=== PATIENT | male | born 1960 | race Caucasian/White ===

== ENCOUNTER → 2018-01-02 | Outpatient (CLI) | payer BC | END | disposition home or self-care (01) | LOC: ECHO 10:13 | DX: I35.0 Nonrheumatic aortic (valve) stenosis (principal); I07.1 Rheumatic tricuspid insufficiency | CPT/HCPCS: 93306 ==

== ENCOUNTER 2021-05-31 19:15 | Inpatient (IN) | payer BC ==
[~2021-05-31] VITALS: Ht 185.4 cm; Wt 127.0 kg
[2021-05-31 19:20] VITALS: BP 140/78
[2021-05-31] MEDS ORDERED: LEVO200T5 PO (19:50)
[2021-05-31] MEDS ORDERED: METF10007 PO (19:50)
[2021-05-31] MEDS ORDERED: SEMA14TA PO (19:50)
[2021-05-31] MEDS ORDERED: PIOG30TA62 PO (19:50)
[2021-05-31] MEDS ORDERED: LORazepam 0.5 MG TABLET PO PRN (21:00)
[2021-05-31] MEDS ORDERED: ONDANSETRON PF 4 MG/2 ML VIAL. IVP PRN (21:00)
[2021-05-31] MEDS ORDERED: ACETAMINOPHEN 325 MG TABLET. PO PRN (21:00)
[2021-05-31] MEDS ORDERED: DEXTROSE 50% 25 GM / 50ML DISP.SYRIN. IV PRN (21:00)
[2021-05-31] MEDS ORDERED: SENNOSIDES 8.6 MG TABLET PO PRN (21:00)
[2021-05-31] MEDS ORDERED: PROCHLORPERAZINE 10 MG/2 ML VIAL. IV PRN (21:00)
[2021-05-31] MEDS ORDERED: DOCUSATE SODIUM 100 MG CAPSULE. PO PRN (21:00)
[2021-05-31] MEDS ORDERED: ZOLPIDEM 5 MG TABLET. PO PRN (21:00)
[2021-05-31] MEDS: HEPARIN for SUB-Q USE 5,000 UNIT/ML VIAL. SQ SCH (21:18)
[2021-05-31] MEDS: ASCORBIC ACID 1,000 MG TABLET PO SCH (21:18)
[2021-05-31] MEDS: BENZONATATE 100 MG CAPSULE. PO SCH (21:19)
[2021-05-31 23:44] VITALS: BP 151/78
[2021-06-01] MEDS: guaiFENesin/CODEINE 100mg/10mg 5 ML LIQUID PO PRN (01:38)
[2021-06-01 02:30] LABS: ALBUMIN 2.6 g/dL (3.4-5.0); ALBUMIN/GLOBULIN RATIO 0.5 (1.0-1.7); C-REACTIVE PROTEIN 112.5 mg/L (0-3.3); CALCIUM 8.1 mg/dL (8.5-10.1); CREATININE 0.7 mg/dL (0.7-1.3); GFR 115.4; POTASSIUM 4.3 mmol/L (3.5-5.1); TOTAL BILIRUBIN 0.6 mg/dL (0.2-1.0); TOTAL PROTEIN 7.4 g/dL (6.4-8.2)
[2021-06-01 02:59] LABS: BASO % 0 % (0-3); EOS % 0 % (0-3); HEMATOCRIT 42.4 % (39.0-53.0); HEMOGLOBIN 14.5 g/dL (13.0-17.5); LYMPH # 0.7 x10^3/uL (1.0-4.8); LYMPH % 11 % (24-48); MEAN CORPUSCULAR HEMOGLOBIN 29 pg (25-35); MEAN CORPUSCULAR HGB CONC 34 g/dL (31-37); MEAN CORPUSCULAR VOLUME 84 fL (79-100); MONO # 0.5 x10^3/uL (0.0-1.1); MONO % 8 % (0-9); NEUT # 5.1 x10^3/uL (1.8-7.7); NEUT % 81 % (31-73); PLATELET COUNT 242 x10^3/uL (140-400); RED BLOOD COUNT 5.03 x10^6/uL (4.30-5.70); RED CELL DISTRIBUTION WIDTH 14.3 % (11.5-14.5); WHITE BLOOD COUNT 6.3 x10^3/uL (4.0-11.0)
[2021-06-01 03:12] LABS: MAGNESIUM 2.3 mg/dL (1.8-2.4)
[2021-06-01 03:18] VITALS: BP 140/78
[2021-06-01] MEDS ORDERED: REMDESIVIR LOAD in IV NORMAL SALINE 250ML TV IV ONE (05:00)
[2021-06-01] MEDS: ASCORBIC ACID 1,000 MG TABLET PO SCH ×3 (08:49→20:43)
[2021-06-01] MEDS: ZINC SULFATE 220 MG CAPSULE. PO SCH (08:49)
[2021-06-01] MEDS: BENZONATATE 100 MG CAPSULE. PO SCH ×3 (08:49→20:43)
[2021-06-01] MEDS: DEXAMETHASONE SOD PHOS 4 MG/ML VIAL IVP SCH (08:50)
[2021-06-01] MEDS: THIAMINE 100 MG TABLET. PO SCH (08:50)
[2021-06-01] MEDS: HEPARIN for SUB-Q USE 5,000 UNIT/ML VIAL. SQ SCH ×2 (08:51→20:44)
[2021-06-01] MEDS: INSULIN LISPRO 300 UNITS/3 ML VIAL. SQ SCH ×3 (08:52→16:22)
[2021-06-01] MEDS ORDERED: DEXTROSE 50% 25 GM / 50ML DISP.SYRIN. IV PRN (09:30)
--- NOTE | 2021-06-01 10:45 | NUR ---
SW following. Discussed with RN, pt from home with family, 9L, ada diet. COVID-19 positive. Pt started on Remdesivir early this morning. RN advised no SW needs at this time. SW will continue to follow.
--- NOTE | 2021-06-01 10:50 | PDOC1 ---
History and Physical Date of Service: DOS: DATE: 06/01/21 TIME: 10:44 Chief Complaint: Problems: (1) COVID (2) PNA (pneumonia) Chief Complain: Shortness of breath History of Present Illness: HPI: Patient is a 60-year-old white male presented to [facility] yesterday due to concern for Covid pneumonia. Patient reports he started developing symptoms about 10 days ago. He had been in close exposure to his njelnckd-qt-ylg who was found to be Covid positive today as recently. He went got tested at that time was found to be positive. Initially just quarantine at home and provided supportive care himself. Actually to outside emergency room 5 days ago because his shortness of breath was persisting and he was discharged that day with azithromycin. He finished these antibiotics on May 30. Patient reported that yesterday he continued feeling very weak and short of b reath checked his pulse ox and it was in the 70s prompting him to present for evaluation outside hospital. Imaging performed there showed opacities consistent with COVID-19 infection. He was then recommended for transfer here for further treatment. I evaluated the patient this morning he was resting in bed on 10 L nasal cannula. Reported his shortness of breath was improving but notably present still. Reported his oxygen decreases when he sleeps. Does not wear CPAP or BiPAP at home. Started on remdesivir and dexamethasone overnight. Just completed antibiotic course will hold off for now. Pulmonary consult Past Medical/Surgical History: PMH/PSH: Noninsulin-dependent type 2 diabetes Allergies: Allergies: Coded Allergies: Penicillins (Verified Allergy, Intermediate, 05/31/21) Family History: Family History: Diabetes Social History: Social History: Denies alcohol tobacco drug use Current Medications: Current Medications Current Medications Sennosides (Senna) 17.2 mg PRN BID PRN PO CONSTIPATION; Start 05/31/21 at 21:00 Docusate Sodium (Colace) 100 mg PRN DAILY PRN PO HARD STOOLS; Start 05/31/21 at 21:00 Ondansetron HCl (Zofran) 4 mg PRN Q6HRS PRN IVP NAUSEA/VOMITING; Start 05/31/21 at 21:00 Insulin Human Lispro (HumaLOG) 0-9 UNITS TIDWMEALS SQ Last administered on 06/01/21at 08:52; Start 06/01/21 at 08:00 Dextrose (Dextrose 50%-Water Syringe) 12.5 gm PRN Q15MIN PRN IV SEE COMMENTS; Start 05/31/21 at 21:00; Stop 06/01/21 at 09:42; Status DC Acetaminophen (Tylenol) 650 mg PRN Q4HRS PRN PO TEMP OVER 100.4F OR MILD PAIN; Start 05/31/21 at 21:00 Lorazepam (Ativan) 0.5 mg PRN Q6HRS PRN PO ANXIETY / AGITATION; Start 05/31/21 at 21:00 Lorazepam (Ativan Inj) 0.25 mg PRN Q4HRS PRN IV ANXIETY / AGITATION; Start 05/31/21 at 21:00 Heparin Sodium (Porcine) (Heparin Sodium) 5,000 unit Q12HR SQ Last administered on 06/01/21at 08:51; Start 05/31/21 at 21:00 Prochlorperazine Edisylate (Compazine) 10 mg PRN Q6HRS PRN IV NAUSEA/VOMITING; Start 05/31/21 at 21:00 Zolpidem Tartrate (Ambien) 2.5 mg PRN QHS PRN PO INSOMNIA; Start 05/31/21 at 21:00 Ascorbic Acid (Vitamin C) 3,000 mg TID PO Last administered on 06/01/21at 08:49; Start 05/31/21 at 21:00 Dexamethasone Sodium Phosphate (Decadron) 6 mg DAILY IVP Last administered on 06/01/21at 08:50; Start 06/01/21 at 09:00; Stop 06/11/21 at 08:59 Thiamine Mononitrate (Vitamin B-1) 300 mg DAILY PO Last administered on 06/01/21at 08:50; Start 06/01/21 at 09:00 Zinc Sulfate (Orazinc) 220 mg DAILY PO Last administered on 06/01/21at 08:49; Start 06/01/21 at 09:00 Benzonatate (Tessalon Perle) 100 mg [id number] PO Last administered on 06/01/21at 08:49; Start 05/31/21 at 22:00 Guaifenesin/ Codeine Phosphate (Robitussin Ac) 5 ml PRN Q6HRS PRN PO COUGH Last administered on 06/01/21at 01:38; Start 06/01/21 at 01:00 Remdesivir 200 mg/ Sodium Chloride 210 ml @ 210 mls/hr 1X ONCE IV Last administered on 06/01/21at 04:35; Start 06/01/21 at 05:00; Stop 06/01/21 at 05:59; Status DC Remdesivir 100 mg/ Sodium Chloride 230 ml @ 460 mls/hr Q24H IV ; Start 06/02/21 at 09:00; Stop 06/05/21 at 09:29 Levothyroxine Sodium (Synthroid) 200 mcg DAILY06 PO ; Start 06/02/21 at 06:00 Insulin Glargine (Lantus Syringe) 10 unit QHS SQ ; Start 06/01/21 at 21:00 Insulin Human Lispro (HumaLOG) 0-7 UNITS TIDWMEALS SQ ; Start 06/01/21 at 12:00 Dextrose (Dextrose 50%-Water Syringe) 12.5 gm PRN Q15MIN PRN IV SEE COMMENTS; Start 06/01/21 at 09:30 Active Scripts Active Reported Metformin Hcl 1,000 Mg Tablet 1,000 Mg PO BIDWMEALS Rybelsus (Semaglutide) 14 Mg Tablet 14 Mg PO DAILY Pioglitazone Hcl 30 Mg Tablet 30 Mg PO DAILY Levothyroxine Sodium 200 Mcg Tablet 200 Mcg PO DAILY ROS: Review of Systems Review of System Unless noted in HPI 14 point review systems is negative Physical Exam: Vital Signs: Vital Signs Date Time Temp Pulse Resp B/P (MAP) Pulse Ox O2 Delivery O2 Flow Rate FiO2 06/01/21 08:00 Nasal Cannula 9.0 06/01/21 06:21 91 06/01/21 03:18 98.7 84 25 140/78 (98) 98.7 Physcial Exam: GEN: No apparent distress. Alert and oriented HEENT: Normal cephalic, atraumatic, external auditory canals are patent EYES: Extraocular muscles are intact, pupil are equally round and reactive to light and accommodation MUSCULOSKELETAL: Well developed , well nourished, good range of motion ENDOCRINE: No thyromegaly was palpated LYMPHATICS: No cervical chain or axillary nodes were noted HEMATOPOIETIC: No bruising NECK: Supple, no JVD, no thyromegaly was noted LUNGS: Crackles in lower lung hopkins. HEART: RRR, S!, S2 present. Peripheral pulses intact, no obvious murmurs noted ABDOMEN: Soft, nontender. Positive bowel sounds, no organomegaly, normal bowel sounds EXTREMITIES: Without clubbing, cyanosis, or edema. Pedal pulses intact. NEUROLOGIC: Normal speech and tone. A&O x 3, moves all extremities, no obvious focal deficits PSYCHIATRIC: Normal affect, normal mood. Stable SKIN: No ulcerations or rashes, good skin turgor, no jaundice VASCULAR: Good capillary refill, neurovascular bundle appears to be intact Labs: Labs: Laboratory Tests Test 06/01/21 02:00 06/01/21 07:37 White Blood Count 6.3 x10^3/uL (4.0-11.0) Red Blood Count 5.03 x10^6/uL (4.30-5.70) Hemoglobin 14.5 g/dL (13.0-17.5) Hematocrit 42.4 % (39.0-53.0) Mean Corpuscular Volume 84 fL (79-100) Mean Corpuscular Hemoglobin 29 pg (25-35) Mean Corpuscular Hemoglobin Concent 34 g/dL (31-37) Red Cell Distribution Width 14.3 % (11.5-14.5) Platelet Count 242 x10^3/uL (140-400) Neutrophils (%) (Auto) 81 % (31-73) Lymphocytes (%) (Auto) 11 % (24-48) Monocytes (%) (Auto) 8 % (0-9) Eosinophils (%) (Auto) 0 % (0-3) Basophils (%) (Auto) 0 % (0-3) Neutrophils # (Auto) 5.1 x10^3/uL (1.8-7.7) Lymphocytes # (Auto) 0.7 x10^3/uL (1.0-4.8) Monocytes # (Auto) 0.5 x10^3/uL (0.0-1.1) Eosinophils # (Auto) 0.0 x10^3/uL (0.0-0.7) Basophils # (Auto) 0.0 x10^3/uL (0.0-0.2) D-Dimer (Daniela) 0.65 ug/mlFEU (0.00-0.50) Sodium Level 131 mmol/L (136-145) Potassium Level 4.3 mmol/L (3.5-5.1) Chloride Level 96 mmol/L (98-107) Carbon Dioxide Level 24 mmol/L (21-32) Anion Gap 11 (6-14) Blood Urea Nitrogen 12 mg/dL (8-26) Creatinine 0.7 mg/dL (0.7-1.3) Estimated GFR (Cockcroft-Gault) 115.4 BUN/Creatinine Ratio 17 (6-20) Glucose Level 286 mg/dL (70-99) Calcium Level 8.1 mg/dL (8.5-10.1) Phosphorus Level 3.0 mg/dL (2.6-4.7) Magnesium Level 2.3 mg/dL (1.8-2.4) Total Bilirubin 0.6 mg/dL (0.2-1.0) Aspartate Amino Transf (AST/SGOT) 47 U/L (15-37) Alanine Aminotransferase (ALT/SGPT) 33 U/L (16-63) Alkaline Phosphatase 41 U/L (46-116) C-Reactive Protein, Quantitative 112.5 mg/L (0-3.3) Total Protein 7.4 g/dL (6.4-8.2) Albumin 2.6 g/dL (3.4-5.0) Albumin/Globulin Ratio 0.5 (1.0-1.7) Glucose (Fingerstick) 256 mg/dL (70-99) Laboratory Tests Test 06/01/21 02:00 06/01/21 07:37 White Blood Count 6.3 x10^3/uL (4.0-11.0) Red Blood Count 5.03 x10^6/uL (4.30-5.70) Hemoglobin 14.5 g/dL (13.0-17.5) Hematocrit 42.4 % (39.0-53.0) Mean Corpuscular Volume 84 fL (79-100) Mean Corpuscular Hemoglobin 29 pg (25-35) Mean Corpuscular Hemoglobin Concent 34 g/dL (31-37) Red Cell Distribution Width 14.3 % (11.5-14.5) Platelet Count 242 x10^3/uL (140-400) Neutrophils (%) (Auto) 81 % (31-73) Lymphocytes (%) (Auto) 11 % (24-48) Monocytes (%) (Auto) 8 % (0-9) Eosinophils (%) (Auto) 0 % (0-3) Basophils (%) (Auto) 0 % (0-3) Neutrophils # (Auto) 5.1 x10^3/uL (1.8-7.7) Lymphocytes # (Auto) 0.7 x10^3/uL (1.0-4.8) Monocytes # (Auto) 0.5 x10^3/uL (0.0-1.1) Eosinophils # (Auto) 0.0 x10^3/uL (0.0-0.7) Basophils # (Auto) 0.0 x10^3/uL (0.0-0.2) D-Dimer (Daniela) 0.65 ug/mlFEU (0.00-0.50) Sodium Level 131 mmol/L (136-145) Potassium Level 4.3 mmol/L (3.5-5.1) Chloride Level 96 mmol/L (98-107) Carbon Dioxide Level 24 mmol/L (21-32) Anion Gap 11 (6-14) Blood Urea Nitrogen 12 mg/dL (8-26) Creatinine 0.7 mg/dL (0.7-1.3) Estimated GFR (Cockcroft-Gault) 115.4 BUN/Creatinine Ratio 17 (6-20) Glucose Level 286 mg/dL (70-99) Calcium Level 8.1 mg/dL (8.5-10.1) Phosphorus Level 3.0 mg/dL (2.6-4.7) Magnesium Level 2.3 mg/dL (1.8-2.4) Total Bilirubin 0.6 mg/dL (0.2-1.0) Aspartate Amino Transf (AST/SGOT) 47 U/L (15-37) Alanine Aminotransferase (ALT/SGPT) 33 U/L (16-63) Alkaline Phosphatase 41 U/L (46-116) C-Reactive Protein, Quantitative 112.5 mg/L (0-3.3) Total Protein 7.4 g/dL (6.4-8.2) Albumin 2.6 g/dL (3.4-5.0) Albumin/Globulin Ratio 0.5 (1.0-1.7) Glucose (Fingerstick) 256 mg/dL (70-99) Assessment/Plan Assessment/Plan COVID-19 pneumonia, noninsulin-dependent type 2 diabetes -Present outside hospital with 9-day history of URI symptoms, close contact with Covid positive people -Initially treated outpatient with azithromycin but returned emergency room yesterday due to failed treatment -Noted for positive COVID-19 sent here. -Started remdesivir and dexamethasone overnight. We will hold off on antibiotics given he just completed a recent course. -Consult to pulmonary team -We will provide sliding scale and long-acting for patient's diabetes while inpatient. If He is insistent on his oral meds he can continue them and stop insulin while admitted if he desires. -DVT prophylaxis -Diet as tolerated -Plan of care discussed with bedside RN. Justifications for Admission Other Justification COVID-19 positive test (U07.1, COVID-19) with Acute Pneumonia (J12.89, Other viral pneumonia) (If respiratory failure or sepsis present, add as separate assessment) ANDRZEJ SALAMANCA MD Jun 01, 2021 10:50
[2021-06-01 11:00] VITALS: BP 143/75
--- NOTE | 2021-06-01 11:50 | PDOC ---
PULMONARY PROGRESS NOTES DATE: 06/01/21 TIME: 11:48 Vitals Vital Signs Date Time Temp Pulse Resp B/P (MAP) Pulse Ox O2 Delivery O2 Flow Rate FiO2 06/01/21 11:00 98.4 53 23 143/75 (97) 97 98.4 06/01/21 08:00 Nasal Cannula 9.0 Labs Laboratory Tests Test 06/01/21 02:00 06/01/21 07:37 06/01/21 11:39 White Blood Count 6.3 x10^3/uL (4.0-11.0) Red Blood Count 5.03 x10^6/uL (4.30-5.70) Hemoglobin 14.5 g/dL (13.0-17.5) Hematocrit 42.4 % (39.0-53.0) Mean Corpuscular Volume 84 fL (79-100) Mean Corpuscular Hemoglobin 29 pg (25-35) Mean Corpuscular Hemoglobin Concent 34 g/dL (31-37) Red Cell Distribution Width 14.3 % (11.5-14.5) Platelet Count 242 x10^3/uL (140-400) Neutrophils (%) (Auto) 81 % (31-73) Lymphocytes (%) (Auto) 11 % (24-48) Monocytes (%) (Auto) 8 % (0-9) Eosinophils (%) (Auto) 0 % (0-3) Basophils (%) (Auto) 0 % (0-3) Neutrophils # (Auto) 5.1 x10^3/uL (1.8-7.7) Lymphocytes # (Auto) 0.7 x10^3/uL (1.0-4.8) Monocytes # (Auto) 0.5 x10^3/uL (0.0-1.1) Eosinophils # (Auto) 0.0 x10^3/uL (0.0-0.7) Basophils # (Auto) 0.0 x10^3/uL (0.0-0.2) D-Dimer (Daniela) 0.65 ug/mlFEU (0.00-0.50) Sodium Level 131 mmol/L (136-145) Potassium Level 4.3 mmol/L (3.5-5.1) Chloride Level 96 mmol/L (98-107) Carbon Dioxide Level 24 mmol/L (21-32) Anion Gap 11 (6-14) Blood Urea Nitrogen 12 mg/dL (8-26) Creatinine 0.7 mg/dL (0.7-1.3) Estimated GFR (Cockcroft-Gault) 115.4 BUN/Creatinine Ratio 17 (6-20) Glucose Level 286 mg/dL (70-99) Calcium Level 8.1 mg/dL (8.5-10.1) Phosphorus Level 3.0 mg/dL (2.6-4.7) Magnesium Level 2.3 mg/dL (1.8-2.4) Total Bilirubin 0.6 mg/dL (0.2-1.0) Aspartate Amino Transf (AST/SGOT) 47 U/L (15-37) Alanine Aminotransferase (ALT/SGPT) 33 U/L (16-63) Alkaline Phosphatase 41 U/L (46-116) C-Reactive Protein, Quantitative 112.5 mg/L (0-3.3) Total Protein 7.4 g/dL (6.4-8.2) Albumin 2.6 g/dL (3.4-5.0) Albumin/Globulin Ratio 0.5 (1.0-1.7) Glucose (Fingerstick) 256 mg/dL (70-99) 267 mg/dL (70-99) Laboratory Tests Test 06/01/21 02:00 06/01/21 07:37 06/01/21 11:39 White Blood Count 6.3 x10^3/uL (4.0-11.0) Red Blood Count 5.03 x10^6/uL (4.30-5.70) Hemoglobin 14.5 g/dL (13.0-17.5) Hematocrit 42.4 % (39.0-53.0) Mean Corpuscular Volume 84 fL (79-100) Mean Corpuscular Hemoglobin 29 pg (25-35) Mean Corpuscular Hemoglobin Concent 34 g/dL (31-37) Red Cell Distribution Width 14.3 % (11.5-14.5) Platelet Count 242 x10^3/uL (140-400) Neutrophils (%) (Auto) 81 % (31-73) Lymphocytes (%) (Auto) 11 % (24-48) Monocytes (%) (Auto) 8 % (0-9) Eosinophils (%) (Auto) 0 % (0-3) Basophils (%) (Auto) 0 % (0-3) Neutrophils # (Auto) 5.1 x10^3/uL (1.8-7.7) Lymphocytes # (Auto) 0.7 x10^3/uL (1.0-4.8) Monocytes # (Auto) 0.5 x10^3/uL (0.0-1.1) Eosinophils # (Auto) 0.0 x10^3/uL (0.0-0.7) Basophils # (Auto) 0.0 x10^3/uL (0.0-0.2) D-Dimer (Daniela) 0.65 ug/mlFEU (0.00-0.50) Sodium Level 131 mmol/L (136-145) Potassium Level 4.3 mmol/L (3.5-5.1) Chloride Level 96 mmol/L (98-107) Carbon Dioxide Level 24 mmol/L (21-32) Anion Gap 11 (6-14) Blood Urea Nitrogen 12 mg/dL (8-26) Creatinine 0.7 mg/dL (0.7-1.3) Estimated GFR (Cockcroft-Gault) 115.4 BUN/Creatinine Ratio 17 (6-20) Glucose Level 286 mg/dL (70-99) Calcium Level 8.1 mg/dL (8.5-10.1) Phosphorus Level 3.0 mg/dL (2.6-4.7) Magnesium Level 2.3 mg/dL (1.8-2.4) Total Bilirubin 0.6 mg/dL (0.2-1.0) Aspartate Amino Transf (AST/SGOT) 47 U/L (15-37) Alanine Aminotransferase (ALT/SGPT) 33 U/L (16-63) Alkaline Phosphatase 41 U/L (46-116) C-Reactive Protein, Quantitative 112.5 mg/L (0-3.3) Total Protein 7.4 g/dL (6.4-8.2) Albumin 2.6 g/dL (3.4-5.0) Albumin/Globulin Ratio 0.5 (1.0-1.7) Glucose (Fingerstick) 256 mg/dL (70-99) 267 mg/dL (70-99) Medications Active Scripts Medications Dose Route/Sig Max Daily Dose Days Date Category Metformin Hcl 1,000 Mg Tablet 1,000 Mg PO BIDWMEALS 05/31/21 Reported Rybelsus (Semaglutide) 14 Mg Tablet 14 Mg PO DAILY 05/31/21 Reported Pioglitazone Hcl 30 Mg Tablet 30 Mg PO DAILY 05/31/21 Reported Levothyroxine Sodium 200 Mcg Tablet 200 Mcg PO DAILY 05/31/21 Reported Impression . Full consult dictated Continue support with remdesivir and steroids, oxygen. Tocilizumab not available at this time KIP THOMPSON MD Jun 01, 2021 11:50
[2021-06-01] MEDS ORDERED: INSULIN LISPRO 300 UNITS/3 ML VIAL. SQ SCH (12:00)
--- NOTE | 2021-06-01 12:16 | CONS ---
DATE OF CONSULTATION: 06/01/2021 ATTENDING PHYSICIAN: Duane Subramanian MD DICTATING PHYSICIAN: Alfa Santos MD REASON FOR CONSULTATION: The patient is seen in pulmonary consultation at the request of Dr. Subramanian for respiratory failure, COVID-19 positivity. HISTORY OF PRESENT ILLNESS: The patient is a 60-year-old who tested positive approximately 11 days ago. Presented with increasing shortness of breath at [facility]. He was transferred for higher level of care to [facility]. The patient has had increasing shortness of breath over the last 2-3 days. He has some close exposures to qrhmvucd-td-yoz who was found to be positive also. He is currently on oxygen supplementation. He is requiring increased oxygen requirements as a consequence. I was asked to see him in consultation. The patient is currently on 9 liters of oxygen. He started off with 3. He is coughing, but producing no mucus. He did lose his taste. He had body aches. He had high fevers initially. He has been started on remdesivir and dexamethasone. PAST MEDICAL HISTORY: Type 2 diabetes, nonsmoker. ALLERGIES: PENICILLIN. FAMILY HISTORY: Diabetes. SOCIAL HISTORY: Denies any alcohol or tobacco. 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 REVIEW OF SYSTEMS: As indicated above, otherwise other systems were reviewed and negative. CURRENT MEDICATIONS: List was reviewed once again, he is receiving remdesivir, dexamethasone, oxygen supplementation, DVT prophylaxis. PHYSICAL EXAMINATION: VITAL SIGNS: Stable. T-max was 99.2. HEENT: Eyes, the sclerae were nonicteric. NECK: Jugular venous distention was not elevated. No lymphadenopathy. CHEST: Full expansion. CHEST: Adequate flow with no wheezes. CARDIOVASCULAR: Regular rate and rhythm with S1, S2, no S3. ABDOMEN: Soft. EXTREMITIES: No clubbing, cyanosis or edema. LABORATORY DATA: Reviewed. Electrolytes were noted. Sodium was low. C-reactive protein was 112. D-dimer was 0.65, nonspecific, more than likely related to COVID-19. Chest x-ray reviewed, compatible with bilateral opacities compatible with COVID-19. IMPRESSION: 1. Acute hypoxemic respiratory failure secondary to COVID-19 viral pneumonia. 2. COVID-19 viral pneumonia. 3. Hyponatremia. 4. Type 2 diabetes. PLAN: 1. Continue current support with oxygen supplementation. 2. Remdesivir. 3. DVT prophylaxis. 4. Dexamethasone. 5. Currently, the pharmacy is out of tocilizumab. We will continue with current support. JESSICA DR: Jamison TID: [id number]
[2021-06-01 15:00] VITALS: BP 143/70
[2021-06-01 19:00] VITALS: BP 119/69
[2021-06-01] MEDS: INSULIN GLARGINE SYRINGE. SQ SCH (20:44)
[2021-06-01 23:44] VITALS: BP 135/67
[2021-06-02 03:57] VITALS: BP 141/79
[2021-06-02 05:29] LABS: BASO % 0 % (0-3); EOS % 0 % (0-3); HEMOGLOBIN 13.7 g/dL (13.0-17.5); LYMPH # 1.4 x10^3/uL (1.0-4.8); LYMPH % 14 % (24-48); MEAN CORPUSCULAR HEMOGLOBIN 29 pg (25-35); MEAN CORPUSCULAR HGB CONC 34 g/dL (31-37); MEAN CORPUSCULAR VOLUME 85 fL (79-100); MONO # 1.1 x10^3/uL (0.0-1.1); MONO % 10 % (0-9); NEUT # 8.1 x10^3/uL (1.8-7.7); NEUT % 76 % (31-73); PLATELET COUNT 257 x10^3/uL (140-400); RED CELL DISTRIBUTION WIDTH 14.3 % (11.5-14.5); WHITE BLOOD COUNT 10.7 x10^3/uL (4.0-11.0)
[2021-06-02 05:31] LABS: CREATININE 0.8 mg/dL (0.7-1.3); GFR 98.9; MAGNESIUM 2.1 mg/dL (1.8-2.4); POTASSIUM 4.1 mmol/L (3.5-5.1)
[2021-06-02] MEDS: LEVOTHYROXINE 100 MCG TABLET PO SCH (06:05)
[2021-06-02 07:00] VITALS: BP 150/86
[2021-06-02] MEDS: ASCORBIC ACID 1,000 MG TABLET PO SCH ×3 (08:54→20:57)
[2021-06-02] MEDS: HEPARIN for SUB-Q USE 5,000 UNIT/ML VIAL. SQ SCH ×2 (08:54→20:56)
[2021-06-02] MEDS: THIAMINE 100 MG TABLET. PO SCH (08:54)
[2021-06-02] MEDS: INSULIN LISPRO 300 UNITS/3 ML VIAL. SQ SCH ×3 (08:54→17:54)
[2021-06-02] MEDS: BENZONATATE 100 MG CAPSULE. PO SCH ×3 (08:54→20:57)
[2021-06-02] MEDS: DEXAMETHASONE SOD PHOS 4 MG/ML VIAL IVP SCH (08:55)
[2021-06-02] MEDS: ZINC SULFATE 220 MG CAPSULE. PO SCH (08:55)
--- NOTE | 2021-06-02 09:51 | PDOC ---
[employer] PROGRESS NOTE Date of Service DOS: DATE: 06/02/21 TIME: 09:49 Chief Complaint Chief Complaint COVID-19 pneumonia, noninsulin-dependent type 2 diabetes -Present outside hospital with 9-day history of URI symptoms, close contact with Covid positive people -Initially treated outpatient with azithromycin but returned emergency room yesterday due to failed treatment -Noted for positive COVID-19 sent here. -Started remdesivir and dexamethasone overnight. We will hold off on antibiotics given he just completed a recent course. -Consult to pulmonary team -We will provide sliding scale and long-acting for patient's diabetes while inpatient. If He is insistent on his oral meds he can continue them and stop insulin while admitted if he desires. -DVT prophylaxis -Diet as tolerated -Plan of care discussed with bedside RN. History of Present Illness History of Present Illness Patient is a 60-year-old white male presented to [facility] [place] yesterday due to concern for Covid pneumonia. Patient reports he started developing symptoms about 10 days ago. He had been in close exposure to his flxdzkpi-nl-hnk who was found to be Covid positive today as recently. He went got tested at that time was found to be positive. Initially just quarantine at home and provided supportive care himself. Actually to outside emergency room 5 days ago because his shortness of breath was persisting and he was discharged that day with azithromycin. He finished these antibiotics on May 30. Patient reported that yesterday he continued feeling very weak and short of breath checked his pulse ox and it was in the 70s prompting him to present for evaluation outside hospital. Imaging performed there showed opacities consistent with COVID-19 infection. He was then recommended for transfer here for further treatment. I evaluated the patient this morning he was resting in bed on 10 L nasal cannula. Reported his shortness of breath was improving but notably present still. Reported his oxygen decreases when he sleeps. Does not wear CPAP or BiP AP at home. Started on remdesivir and dexamethasone overnight. Just completed antibiotic course will hold off for now. Pulmonary consult 06/02 Patient evaluated examined at bedside this morning. Breathing still about the same but able to wean to 9 L nasal cannula. Says he feels about the same overall. Continuing remdesivir dexamethasone. Pulmonary following. Vitals/I&O Vitals/I&O: Vital Signs Date Time Temp Pulse Resp B/P (MAP) Pulse Ox O2 Delivery O2 Flow Rate FiO2 06/02/21 07:00 97.8 74 16 150/86 (107) 96 97.8 06/01/21 20:00 Nasal Cannula 9.0 I & O 06/01/21 06/01/21 06/02/21 15:00 23:00 07:00 Output Total 550 ml 1 ml 1 ml Balance -550 ml -1 ml -1 ml Physical Exam General: Alert, Oriented X3, Cooperative Heart: Regular rate, Normal S1, Normal S2 Lungs: Other (Course) Abdomen: Normal bowel sounds, Soft, No tenderness Extremities: No edema, Normal pulses Skin: No significant lesion Labs Labs: Laboratory Tests Test 06/01/21 11:39 06/01/21 16:08 06/01/21 19:33 06/02/21 04:30 Glucose (Fingerstick) 267 mg/dL (70-99) 284 mg/dL (70-99) 251 mg/dL (70-99) Sodium Level 131 mmol/L (136-145) Potassium Level 4.1 mmol/L (3.5-5.1) Chloride Level 96 mmol/L (98-107) Carbon Dioxide Level 27 mmol/L (21-32) Anion Gap 8 (6-14) Blood Urea Nitrogen 13 mg/dL (8-26) Creatinine 0.8 mg/dL (0.7-1.3) Estimated GFR (Cockcroft-Gault) 98.9 Glucose Level 202 mg/dL (70-99) Calcium Level 8.0 mg/dL (8.5-10.1) Magnesium Level 2.1 mg/dL (1.8-2.4) Test 06/02/21 05:00 06/02/21 08:29 White Blood Count 10.7 x10^3/uL (4.0-11.0) Red Blood Count 4.70 x10^6/uL (4.30-5.70) Hemoglobin 13.7 g/dL (13.0-17.5) Hematocrit 40.0 % (39.0-53.0) Mean Corpuscular Volume 85 fL (79-100) Mean Corpuscular Hemoglobin 29 pg (25-35) Mean Corpuscular Hemoglobin Concent 34 g/dL (31-37) Red Cell Distribution Width 14.3 % (11.5-14.5) Platelet Count 257 x10^3/uL (140-400) Neutrophils (%) (Auto) 76 % (31-73) Lymphocytes (%) (Auto) 14 % (24-48) Monocytes (%) (Auto) 10 % (0-9) Eosinophils (%) (Auto) 0 % (0-3) Basophils (%) (Auto) 0 % (0-3) Neutrophils # (Auto) 8.1 x10^3/uL (1.8-7.7) Lymphocytes # (Auto) 1.4 x10^3/uL (1.0-4.8) Monocytes # (Auto) 1.1 x10^3/uL (0.0-1.1) Eosinophils # (Auto) 0.0 x10^3/uL (0.0-0.7) Basophils # (Auto) 0.0 x10^3/uL (0.0-0.2) Glucose (Fingerstick) 191 mg/dL (70-99) Comment Review of Relevant I have reviewed the following items silvia (where applicable) has been applied. Medications: Current Medications Medications (Trade) Dose Ordered Sig/Kelley Route PRN Reason Start Time Stop Time Status Last Admin Dose Admin Levothyroxine Sodium (Synthroid) 200 mcg DAILY06 PO 06/02/21 06:00 06/02/21 06:05 Insulin Glargine (Lantus Syringe) 10 unit QHS SQ 06/01/21 21:00 06/01/21 20:44 Justifications for Admission Other Justification COVID-19 positive test (U07.1, COVID-19) with Acute Pneumonia (J12.89, Other viral pneumonia) (If respiratory failure or sepsis present, add as separate assessment) ANDRZEJ SALAMANCA MD Jun 02, 2021 09:51
[2021-06-02] MEDS: REMDESIVIR 100mg in NORMAL SALINE 250ML X 4 DAYS IV SCH (10:10)
[2021-06-02 11:00] VITALS: BP 140/80
[2021-06-02 15:00] VITALS: BP 145/74
--- NOTE | 2021-06-02 17:34 | PDOC ---
PULMONARY PROGRESS NOTES DATE: 06/02/21 TIME: 17:33 Subjective Patient not more short of air. No chest pain no Vitals Vital Signs Date Time Temp Pulse Resp B/P (MAP) Pulse Ox O2 Delivery O2 Flow Rate FiO2 06/02/21 15:00 98.2 78 16 145/74 (97) 91 98.2 06/02/21 08:00 Nasal Cannula 9.0 ROS: No Nausea, No Chest Pain, No Abdominal Pain, No Increase Cough General: Alert Lungs: Clear, Other (Course) Cardiovascular: S1, S2 Abdomen: Soft Neuro Exam: Alert Extremities: No Edema Skin: Warm Labs Laboratory Tests Test 06/01/21 02:00 06/01/21 07:37 06/01/21 11:39 06/01/21 16:08 White Blood Count 6.3 x10^3/uL (4.0-11.0) Red Blood Count 5.03 x10^6/uL (4.30-5.70) Hemoglobin 14.5 g/dL (13.0-17.5) Hematocrit 42.4 % (39.0-53.0) Mean Corpuscular Volume 84 fL (79-100) Mean Corpuscular Hemoglobin 29 pg (25-35) Mean Corpuscular Hemoglobin Concent 34 g/dL (31-37) Red Cell Distribution Width 14.3 % (11.5-14.5) Platelet Count 242 x10^3/uL (140-400) Neutrophils (%) (Auto) 81 % (31-73) Lymphocytes (%) (Auto) 11 % (24-48) Monocytes (%) (Auto) 8 % (0-9) Eosinophils (%) (Auto) 0 % (0-3) Basophils (%) (Auto) 0 % (0-3) Neutrophils # (Auto) 5.1 x10^3/uL (1.8-7.7) Lymphocytes # (Auto) 0.7 x10^3/uL (1.0-4.8) Monocytes # (Auto) 0.5 x10^3/uL (0.0-1.1) Eosinophils # (Auto) 0.0 x10^3/uL (0.0-0.7) Basophils # (Auto) 0.0 x10^3/uL (0.0-0.2) D-Dimer (Daniela) 0.65 ug/mlFEU (0.00-0.50) Sodium Level 131 mmol/L (136-145) Potassium Level 4.3 mmol/L (3.5-5.1) Chloride Level 96 mmol/L (98-107) Carbon Dioxide Level 24 mmol/L (21-32) Anion Gap 11 (6-14) Blood Urea Nitrogen 12 mg/dL (8-26) Creatinine 0.7 mg/dL (0.7-1.3) Estimated GFR (Cockcroft-Gault) 115.4 BUN/Creatinine Ratio 17 (6-20) Glucose Level 286 mg/dL (70-99) Calcium Level 8.1 mg/dL (8.5-10.1) Phosphorus Level 3.0 mg/dL (2.6-4.7) Magnesium Level 2.3 mg/dL (1.8-2.4) Total Bilirubin 0.6 mg/dL (0.2-1.0) Aspartate Amino Transf (AST/SGOT) 47 U/L (15-37) Alanine Aminotransferase (ALT/SGPT) 33 U/L (16-63) Alkaline Phosphatase 41 U/L (46-116) C-Reactive Protein, Quantitative 112.5 mg/L (0-3.3) Total Protein 7.4 g/dL (6.4-8.2) Albumin 2.6 g/dL (3.4-5.0) Albumin/Globulin Ratio 0.5 (1.0-1.7) Glucose (Fingerstick) 256 mg/dL (70-99) 267 mg/dL (70-99) 284 mg/dL (70-99) Test 06/01/21 19:33 06/02/21 04:30 06/02/21 05:00 06/02/21 08:29 Glucose (Fingerstick) 251 mg/dL (70-99) 191 mg/dL (70-99) Sodium Level 131 mmol/L (136-145) Potassium Level 4.1 mmol/L (3.5-5.1) Chloride Level 96 mmol/L (98-107) Carbon Dioxide Level 27 mmol/L (21-32) Anion Gap 8 (6-14) Blood Urea Nitrogen 13 mg/dL (8-26) Creatinine 0.8 mg/dL (0.7-1.3) Estimated GFR (Cockcroft-Gault) 98.9 Glucose Level 202 mg/dL (70-99) Calcium Level 8.0 mg/dL (8.5-10.1) Magnesium Level 2.1 mg/dL (1.8-2.4) White Blood Count 10.7 x10^3/uL (4.0-11.0) Red Blood Count 4.70 x10^6/uL (4.30-5.70) Hemoglobin 13.7 g/dL (13.0-17.5) Hematocrit 40.0 % (39.0-53.0) Mean Corpuscular Volume 85 fL (79-100) Mean Corpuscular Hemoglobin 29 pg (25-35) Mean Corpuscular Hemoglobin Concent 34 g/dL (31-37) Red Cell Distribution Width 14.3 % (11.5-14.5) Platelet Count 257 x10^3/uL (140-400) Neutrophils (%) (Auto) 76 % (31-73) Lymphocytes (%) (Auto) 14 % (24-48) Monocytes (%) (Auto) 10 % (0-9) Eosinophils (%) (Auto) 0 % (0-3) Basophils (%) (Auto) 0 % (0-3) Neutrophils # (Auto) 8.1 x10^3/uL (1.8-7.7) Lymphocytes # (Auto) 1.4 x10^3/uL (1.0-4.8) Monocytes # (Auto) 1.1 x10^3/uL (0.0-1.1) Eosinophils # (Auto) 0.0 x10^3/uL (0.0-0.7) Basophils # (Auto) 0.0 x10^3/uL (0.0-0.2) Test 06/02/21 11:42 06/02/21 16:52 Glucose (Fingerstick) 224 mg/dL (70-99) 297 mg/dL (70-99) Laboratory Tests Test 06/01/21 19:33 06/02/21 04:30 06/02/21 05:00 06/02/21 08:29 Glucose (Fingerstick) 251 mg/dL (70-99) 191 mg/dL (70-99) Sodium Level 131 mmol/L (136-145) Potassium Level 4.1 mmol/L (3.5-5.1) Chloride Level 96 mmol/L (98-107) Carbon Dioxide Level 27 mmol/L (21-32) Anion Gap 8 (6-14) Blood Urea Nitrogen 13 mg/dL (8-26) Creatinine 0.8 mg/dL (0.7-1.3) Estimated GFR (Cockcroft-Gault) 98.9 Glucose Level 202 mg/dL (70-99) Calcium Level 8.0 mg/dL (8.5-10.1) Magnesium Level 2.1 mg/dL (1.8-2.4) White Blood Count 10.7 x10^3/uL (4.0-11.0) Red Blood Count 4.70 x10^6/uL (4.30-5.70) Hemoglobin 13.7 g/dL (13.0-17.5) Hematocrit 40.0 % (39.0-53.0) Mean Corpuscular Volume 85 fL (79-100) Mean Corpuscular Hemoglobin 29 pg (25-35) Mean Corpuscular Hemoglobin Concent 34 g/dL (31-37) Red Cell Distribution Width 14.3 % (11.5-14.5) Platelet Count 257 x10^3/uL (140-400) Neutrophils (%) (Auto) 76 % (31-73) Lymphocytes (%) (Auto) 14 % (24-48) Monocytes (%) (Auto) 10 % (0-9) Eosinophils (%) (Auto) 0 % (0-3) Basophils (%) (Auto) 0 % (0-3) Neutrophils # (Auto) 8.1 x10^3/uL (1.8-7.7) Lymphocytes # (Auto) 1.4 x10^3/uL (1.0-4.8) Monocytes # (Auto) 1.1 x10^3/uL (0.0-1.1) Eosinophils # (Auto) 0.0 x10^3/uL (0.0-0.7) Basophils # (Auto) 0.0 x10^3/uL (0.0-0.2) Test 06/02/21 11:42 06/02/21 16:52 Glucose (Fingerstick) 224 mg/dL (70-99) 297 mg/dL (70-99) Medications Active Scripts Medications Dose Route/Sig Max Daily Dose Days Date Category Metformin Hcl 1,000 Mg Tablet 1,000 Mg PO BIDWMEALS 05/31/21 Reported Rybelsus (Semaglutide) 14 Mg Tablet 14 Mg PO DAILY 05/31/21 Reported Pioglitazone Hcl 30 Mg Tablet 30 Mg PO DAILY 05/31/21 Reported Levothyroxine Sodium 200 Mcg Tablet 200 Mcg PO DAILY 05/31/21 Reported Impression . IMPRESSION: 1. Acute hypoxemic respiratory failure secondary to COVID-19 viral pneumonia. 2. COVID-19 viral pneumonia. 3. Hyponatremia. 4. Type 2 diabetes. Plan . Updated 06/02 If continues to do well may be discharged Friday Continue current support PLAN: 1. Continue current support with oxygen supplementation. 2. Remdesivir. 3. DVT prophylaxis. 4. Dexamethasone. 5. Currently, the pharmacy is out of tocilizumab. We will continue with current support. KIP THOMPSON MD Jun 02, 2021 17:34
[2021-06-02 19:00] VITALS: BP 141/81
[2021-06-02] MEDS: INSULIN GLARGINE SYRINGE. SQ SCH (20:56)
[2021-06-02 23:00] VITALS: BP 138/80
[2021-06-03 03:00] VITALS: BP 130/76
[2021-06-03] MEDS: LEVOTHYROXINE 100 MCG TABLET PO SCH (05:57)
[2021-06-03 07:00] VITALS: BP 151/73
[2021-06-03 07:53] LABS: BASO % 0 % (0-3); EOS % 0 % (0-3); HEMATOCRIT 40.9 % (39.0-53.0); HEMOGLOBIN 14.2 g/dL (13.0-17.5); LYMPH # 1.8 x10^3/uL (1.0-4.8); LYMPH % 14 % (24-48); MEAN CORPUSCULAR HEMOGLOBIN 29 pg (25-35); MEAN CORPUSCULAR HGB CONC 35 g/dL (31-37); MEAN CORPUSCULAR VOLUME 84 fL (79-100); MONO # 1.2 x10^3/uL (0.0-1.1); MONO % 9 % (0-9); NEUT # 9.3 x10^3/uL (1.8-7.7); NEUT % 76 % (31-73); PLATELET COUNT 326 x10^3/uL (140-400); RED CELL DISTRIBUTION WIDTH 14.2 % (11.5-14.5); WHITE BLOOD COUNT 12.3 x10^3/uL (4.0-11.0)
[2021-06-03 08:37] LABS: CALCIUM 8.1 mg/dL (8.5-10.1); CREATININE 0.8 mg/dL (0.7-1.3); GFR 98.9; MAGNESIUM 1.9 mg/dL (1.8-2.4); POTASSIUM 3.8 mmol/L (3.5-5.1)
[2021-06-03] MEDS: INSULIN LISPRO 300 UNITS/3 ML VIAL. SQ SCH ×3 (08:55→17:52)
[2021-06-03] MEDS: REMDESIVIR 100mg in NORMAL SALINE 250ML X 4 DAYS IV SCH (08:59)
[2021-06-03] MEDS: BENZONATATE 100 MG CAPSULE. PO SCH ×3 (09:00→21:24)
[2021-06-03] MEDS: ZINC SULFATE 220 MG CAPSULE. PO SCH (09:00)
[2021-06-03] MEDS: THIAMINE 100 MG TABLET. PO SCH (09:00)
[2021-06-03] MEDS: ASCORBIC ACID 1,000 MG TABLET PO SCH ×3 (09:00→21:24)
[2021-06-03] MEDS: DEXAMETHASONE SOD PHOS 4 MG/ML VIAL IVP SCH (09:01)
[2021-06-03 11:00] VITALS: BP 155/86
--- NOTE | 2021-06-03 11:09 | PDOC ---
PULMONARY PROGRESS NOTES DATE: 06/03/21 TIME: 11:08 Subjective She feels better, not more short of air, if possible wishes to be discharged Vitals Vital Signs Date Time Temp Pulse Resp B/P (MAP) Pulse Ox O2 Delivery O2 Flow Rate FiO2 06/03/21 07:00 98.8 87 16 151/73 (99) 93 Nasal Cannula 7.0 98.8 ROS: No Nausea, No Chest Pain, No Abdominal Pain, No Increase Cough General: Alert Lungs: Clear, Other (Course) Cardiovascular: S1, S2 Abdomen: Soft Neuro Exam: Alert Extremities: No Edema Skin: Warm Labs Laboratory Tests Test 06/01/21 11:39 06/01/21 16:08 06/01/21 19:33 06/02/21 04:30 Glucose (Fingerstick) 267 mg/dL (70-99) 284 mg/dL (70-99) 251 mg/dL (70-99) Sodium Level 131 mmol/L (136-145) Potassium Level 4.1 mmol/L (3.5-5.1) Chloride Level 96 mmol/L (98-107) Carbon Dioxide Level 27 mmol/L (21-32) Anion Gap 8 (6-14) Blood Urea Nitrogen 13 mg/dL (8-26) Creatinine 0.8 mg/dL (0.7-1.3) Estimated GFR (Cockcroft-Gault) 98.9 Glucose Level 202 mg/dL (70-99) Calcium Level 8.0 mg/dL (8.5-10.1) Magnesium Level 2.1 mg/dL (1.8-2.4) Test 06/02/21 05:00 06/02/21 08:29 06/02/21 11:42 06/02/21 16:52 White Blood Count 10.7 x10^3/uL (4.0-11.0) Red Blood Count 4.70 x10^6/uL (4.30-5.70) Hemoglobin 13.7 g/dL (13.0-17.5) Hematocrit 40.0 % (39.0-53.0) Mean Corpuscular Volume 85 fL (79-100) Mean Corpuscular Hemoglobin 29 pg (25-35) Mean Corpuscular Hemoglobin Concent 34 g/dL (31-37) Red Cell Distribution Width 14.3 % (11.5-14.5) Platelet Count 257 x10^3/uL (140-400) Neutrophils (%) (Auto) 76 % (31-73) Lymphocytes (%) (Auto) 14 % (24-48) Monocytes (%) (Auto) 10 % (0-9) Eosinophils (%) (Auto) 0 % (0-3) Basophils (%) (Auto) 0 % (0-3) Neutrophils # (Auto) 8.1 x10^3/uL (1.8-7.7) Lymphocytes # (Auto) 1.4 x10^3/uL (1.0-4.8) Monocytes # (Auto) 1.1 x10^3/uL (0.0-1.1) Eosinophils # (Auto) 0.0 x10^3/uL (0.0-0.7) Basophils # (Auto) 0.0 x10^3/uL (0.0-0.2) Glucose (Fingerstick) 191 mg/dL (70-99) 224 mg/dL (70-99) 297 mg/dL (70-99) Test 06/02/21 19:56 06/03/21 07:25 06/03/21 07:40 Glucose (Fingerstick) 315 mg/dL (70-99) 170 mg/dL (70-99) White Blood Count 12.3 x10^3/uL (4.0-11.0) Red Blood Count 4.90 x10^6/uL (4.30-5.70) Hemoglobin 14.2 g/dL (13.0-17.5) Hematocrit 40.9 % (39.0-53.0) Mean Corpuscular Volume 84 fL (79-100) Mean Corpuscular Hemoglobin 29 pg (25-35) Mean Corpuscular Hemoglobin Concent 35 g/dL (31-37) Red Cell Distribution Width 14.2 % (11.5-14.5) Platelet Count 326 x10^3/uL (140-400) Neutrophils (%) (Auto) 76 % (31-73) Lymphocytes (%) (Auto) 14 % (24-48) Monocytes (%) (Auto) 9 % (0-9) Eosinophils (%) (Auto) 0 % (0-3) Basophils (%) (Auto) 0 % (0-3) Neutrophils # (Auto) 9.3 x10^3/uL (1.8-7.7) Lymphocytes # (Auto) 1.8 x10^3/uL (1.0-4.8) Monocytes # (Auto) 1.2 x10^3/uL (0.0-1.1) Eosinophils # (Auto) 0.0 x10^3/uL (0.0-0.7) Basophils # (Auto) 0.0 x10^3/uL (0.0-0.2) Sodium Level 133 mmol/L (136-145) Potassium Level 3.8 mmol/L (3.5-5.1) Chloride Level 96 mmol/L (98-107) Carbon Dioxide Level 29 mmol/L (21-32) Anion Gap 8 (6-14) Blood Urea Nitrogen 10 mg/dL (8-26) Creatinine 0.8 mg/dL (0.7-1.3) Estimated GFR (Cockcroft-Gault) 98.9 Glucose Level 158 mg/dL (70-99) Calcium Level 8.1 mg/dL (8.5-10.1) Magnesium Level 1.9 mg/dL (1.8-2.4) Laboratory Tests Test 06/02/21 11:42 06/02/21 16:52 06/02/21 19:56 06/03/21 07:25 Glucose (Fingerstick) 224 mg/dL (70-99) 297 mg/dL (70-99) 315 mg/dL (70-99) 170 mg/dL (70-99) Test 06/03/21 07:40 White Blood Count 12.3 x10^3/uL (4.0-11.0) Red Blood Count 4.90 x10^6/uL (4.30-5.70) Hemoglobin 14.2 g/dL (13.0-17.5) Hematocrit 40.9 % (39.0-53.0) Mean Corpuscular Volume 84 fL (79-100) Mean Corpuscular Hemoglobin 29 pg (25-35) Mean Corpuscular Hemoglobin Concent 35 g/dL (31-37) Red Cell Distribution Width 14.2 % (11.5-14.5) Platelet Count 326 x10^3/uL (140-400) Neutrophils (%) (Auto) 76 % (31-73) Lymphocytes (%) (Auto) 14 % (24-48) Monocytes (%) (Auto) 9 % (0-9) Eosinophils (%) (Auto) 0 % (0-3) Basophils (%) (Auto) 0 % (0-3) Neutrophils # (Auto) 9.3 x10^3/uL (1.8-7.7) Lymphocytes # (Auto) 1.8 x10^3/uL (1.0-4.8) Monocytes # (Auto) 1.2 x10^3/uL (0.0-1.1) Eosinophils # (Auto) 0.0 x10^3/uL (0.0-0.7) Basophils # (Auto) 0.0 x10^3/uL (0.0-0.2) Sodium Level 133 mmol/L (136-145) Potassium Level 3.8 mmol/L (3.5-5.1) Chloride Level 96 mmol/L (98-107) Carbon Dioxide Level 29 mmol/L (21-32) Anion Gap 8 (6-14) Blood Urea Nitrogen 10 mg/dL (8-26) Creatinine 0.8 mg/dL (0.7-1.3) Estimated GFR (Cockcroft-Gault) 98.9 Glucose Level 158 mg/dL (70-99) Calcium Level 8.1 mg/dL (8.5-10.1) Magnesium Level 1.9 mg/dL (1.8-2.4) Medications Active Scripts Medications Dose Route/Sig Max Daily Dose Days Date Category Metformin Hcl 1,000 Mg Tablet 1,000 Mg PO BIDWMEALS 05/31/21 Reported Rybelsus (Semaglutide) 14 Mg Tablet 14 Mg PO DAILY 05/31/21 Reported Pioglitazone Hcl 30 Mg Tablet 30 Mg PO DAILY 05/31/21 Reported Levothyroxine Sodium 200 Mcg Tablet 200 Mcg PO DAILY 05/31/21 Reported Impression . IMPRESSION: 1. Acute hypoxemic respiratory failure secondary to COVID-19 viral pneumonia. 2. COVID-19 viral pneumonia. 3. Hyponatremia. 4. Type 2 diabetes. Plan . Updated 1024 6-minute walk Discussed with Dr. Subramanian Possible discharge today Follow-up with me in July updated 06/02 If continues to do well may be discharged Friday Continue current support PLAN: 1. Continue current support with oxygen supplementation. 2. Remdesivir. 3. DVT prophylaxis. 4. Dexamethasone. 5. Currently, the pharmacy is out of tocilizumab. We will continue with current support. KIP THOMPSON MD Jun 03, 2021 11:09
[2021-06-03] MEDS ORDERED: BENZ-8 PO (12:14)
[2021-06-03] MEDS ORDERED: DEXA6TAB6 PO (12:14)
--- NOTE | 2021-06-03 12:19 | PDOC3 ---
[facility]-Discharge Summary Date of Admission: Date of Admission: May 31, 2021 Date of Discharge: Date of Discharge: Jun 03, 2021 Admission Diagnosis: Problems: (1) COVID (2) PNA (pneumonia) Discharge Diagnosis: Discharge Diagnosis: Same Consults: Consults: Pulmonary Hospital Course: Hospital Course: Chief Complaint COVID-19 pneumonia, noninsulin-dependent type 2 diabetes -Present outside hospital with 9-day history of URI symptoms, close contact with Covid positive people -Initially treated outpatient with azithromycin but returned emergency room yesterday due to failed treatment -Noted for positive COVID-19 sent here. -Started remdesivir and dexamethasone overnight. We will hold off on antibiotics given he just completed a recent course. -Consult to pulmonary team -We will provide sliding scale and long-acting for patient's diabetes while inpatient. If He is insistent on his oral meds he can continue them and stop insulin while admitted if he desires. -DVT prophylaxis -Diet as tolerated -Plan of care discussed with bedside RN. History of Present Illness History of Present Illness Patient is a 60-year-old white male presented to [facility] yesterday due to concern for Covid pneumonia. Patient reports he started developing symptoms about 10 days ago. He had been in close exposure to his [id number] who was found to be Covid positive today as recently. He went got tested at that time was found to be positive. Initially just quarantine at home and provided supportive care himself. Actually to outside emergency room 5 days ago because his shortness of breath was persisting and he was discharged that day with azithromycin. He finished these antibiotics on May 30. Patient reported that yesterday he continued feeling very weak and short of breath checked his pulse ox and it was in the 70s prompting him to present for evaluation outside hospital. Imaging performed there showed opacities consistent with COVID-19 infection. He was then recommended for transfer here for further treatment. I evaluated the patient this morning he was resting in bed on 10 L nasal cannula. Reported his shortness of breath was improving but notably present still. Reported his oxygen decreases when he sleeps. Does not wear CPAP or BiPAP at home. Started on remdesivir and dexamethasone overnight. Just completed antibiotic course will hold off for now. Pulmonary consult 06/02 Patient evaluated examined at bedside this morning. Breathing still about the same but able to wean to 9 L nasal cannula. Says he feels about the same overall. Continuing remdesivir dexamethasone. Pulmonary following. 06/03 Patient evaluated examined at bedside this morning. Says he really does not feel short of breath at home. Little bit on exertion. Possible discharge today. Will order 6-minute walk. Discussed case with Dr. Santos. We will discharge im with 1 more week of steroids to complete. I spent greater than 30 minutes in the planning coordination a [id number] with this patient regards to discharge. I also spent 16 minutes with him discussing advance care planning with Remain a full code. Disposition: Disposition/Orders: D/C to Home Activity: Activity: Resume previous activity Diet: Diet: other (diabetic) Medications: Home Meds Active Scripts Dexamethasone (Decadron) 6 Mg Tablet, 6 MG PO DAILY for covid for 7 Days, #7 TAB Prov:ANDRZEJ SALAMANCA MD 06/03/21 Benzonatate (BENZONATATE) 100 Mg Capsule, 100 MG PO PRN TID PRN for COUGH for 14 Days, #30 CAP Prov:ANDRZEJ SALAMANCA MD 06/03/21 Reported Medications Metformin Hcl (METFORMIN HCL) 1,000 Mg Tablet, 1000 MG PO BIDWMEALS for DM 05/31/21 Semaglutide (Rybelsus) 14 Mg Tablet, 14 MG PO DAILY for DM 05/31/21 Pioglitazone Hcl (PIOGLITAZONE HCL) 30 Mg Tablet, 30 MG PO DAILY for DM 05/31/21 Levothyroxine Sodium (LEVOTHYROXINE SODIUM) 200 Mcg Tablet, 200 MCG PO DAILY for hypothyroid 05/31/21 Scheduled Dexamethasone (Decadron), 6 MG PO DAILY Levothyroxine Sodium (Levothyroxine Sodium), 200 MCG PO DAILY, (Reported) Metformin Hcl (Metformin Hcl), 1,000 MG PO BIDWMEALS, (Reported) Pioglitazone Hcl (Pioglitazone Hcl), 30 MG PO DAILY, (Reported) Semaglutide (Rybelsus), 14 MG PO DAILY, (Reported) Scheduled PRN Benzonatate (Benzonatate), 100 MG PO PRN TID PRN for COUGH Justicifation of Admission Dx: Justifications for Admission: Justification of Admission Dx: Yes (COVID, hypoxic respiratory failure) ANDRZEJ SALAMANCA MD Jun 03, 2021 12:19
[2021-06-03 15:00] VITALS: BP 150/87
[2021-06-03 19:00] VITALS: BP 148/75
[2021-06-03] MEDS: HEPARIN for SUB-Q USE 5,000 UNIT/ML VIAL. SQ SCH ×2 (19:33→21:24)
[2021-06-03] MEDS: INSULIN GLARGINE SYRINGE. SQ SCH (21:23)
[2021-06-03 23:00] VITALS: BP 140/63
[2021-06-04 03:00] VITALS: BP 170/84
[2021-06-04] MEDS: LEVOTHYROXINE 100 MCG TABLET PO SCH (06:01)
[2021-06-04 07:00] VITALS: BP 151/70
[2021-06-04] MEDS: ASCORBIC ACID 1,000 MG TABLET PO SCH ×3 (08:37→21:05)
[2021-06-04] MEDS: ZINC SULFATE 220 MG CAPSULE. PO SCH (08:37)
[2021-06-04] MEDS: THIAMINE 100 MG TABLET. PO SCH (08:37)
[2021-06-04] MEDS: DEXAMETHASONE SOD PHOS 4 MG/ML VIAL IVP SCH (08:38)
[2021-06-04] MEDS: BENZONATATE 100 MG CAPSULE. PO SCH ×3 (08:38→21:05)
--- NOTE | 2021-06-04 08:39 | PDOC ---
PULMONARY PROGRESS NOTES DATE: 06/04/21 TIME: 08:39 Subjective She feels better, not more short of air, if possible wishes to be discharged Vitals Vital Signs Date Time Temp Pulse Resp B/P (MAP) Pulse Ox O2 Delivery O2 Flow Rate FiO2 06/04/21 03:00 98.1 77 20 170/84 (112) 91 Nasal Cannula 7.0 98.1 ROS: No Nausea, No Chest Pain, No Abdominal Pain, No Increase Cough General: Alert Lungs: Clear, Other (Course) Cardiovascular: S1, S2 Abdomen: Soft Neuro Exam: Alert Extremities: No Edema Skin: Warm Labs Laboratory Tests Test 06/02/21 11:42 06/02/21 16:52 06/02/21 19:56 06/03/21 07:25 Glucose (Fingerstick) 224 mg/dL (70-99) 297 mg/dL (70-99) 315 mg/dL (70-99) 170 mg/dL (70-99) Test 06/03/21 07:40 06/03/21 11:47 06/03/21 17:06 06/03/21 20:04 White Blood Count 12.3 x10^3/uL (4.0-11.0) Red Blood Count 4.90 x10^6/uL (4.30-5.70) Hemoglobin 14.2 g/dL (13.0-17.5) Hematocrit 40.9 % (39.0-53.0) Mean Corpuscular Volume 84 fL (79-100) Mean Corpuscular Hemoglobin 29 pg (25-35) Mean Corpuscular Hemoglobin Concent 35 g/dL (31-37) Red Cell Distribution Width 14.2 % (11.5-14.5) Platelet Count 326 x10^3/uL (140-400) Neutrophils (%) (Auto) 76 % (31-73) Lymphocytes (%) (Auto) 14 % (24-48) Monocytes (%) (Auto) 9 % (0-9) Eosinophils (%) (Auto) 0 % (0-3) Basophils (%) (Auto) 0 % (0-3) Neutrophils # (Auto) 9.3 x10^3/uL (1.8-7.7) Lymphocytes # (Auto) 1.8 x10^3/uL (1.0-4.8) Monocytes # (Auto) 1.2 x10^3/uL (0.0-1.1) Eosinophils # (Auto) 0.0 x10^3/uL (0.0-0.7) Basophils # (Auto) 0.0 x10^3/uL (0.0-0.2) Sodium Level 133 mmol/L (136-145) Potassium Level 3.8 mmol/L (3.5-5.1) Chloride Level 96 mmol/L (98-107) Carbon Dioxide Level 29 mmol/L (21-32) Anion Gap 8 (6-14) Blood Urea Nitrogen 10 mg/dL (8-26) Creatinine 0.8 mg/dL (0.7-1.3) Estimated GFR (Cockcroft-Gault) 98.9 Glucose Level 158 mg/dL (70-99) Calcium Level 8.1 mg/dL (8.5-10.1) Magnesium Level 1.9 mg/dL (1.8-2.4) Glucose (Fingerstick) 303 mg/dL (70-99) 340 mg/dL (70-99) 285 mg/dL (70-99) Test 06/04/21 08:00 Glucose (Fingerstick) 169 mg/dL (70-99) Laboratory Tests Test 06/03/21 11:47 06/03/21 17:06 06/03/21 20:04 06/04/21 08:00 Glucose (Fingerstick) 303 mg/dL (70-99) 340 mg/dL (70-99) 285 mg/dL (70-99) 169 mg/dL (70-99) Medications Active Scripts Medications Dose Route/Sig Max Daily Dose Days Date Category Metformin Hcl 1,000 Mg Tablet 1,000 Mg PO BIDWMEALS 05/31/21 Reported Rybelsus (Semaglutide) 14 Mg Tablet 14 Mg PO DAILY 05/31/21 Reported Pioglitazone Hcl 30 Mg Tablet 30 Mg PO DAILY 05/31/21 Reported Levothyroxine Sodium 200 Mcg Tablet 200 Mcg PO DAILY 05/31/21 Reported Impression . IMPRESSION: 1. Acute hypoxemic respiratory failure secondary to COVID-19 viral pneumonia. 2. COVID-19 viral pneumonia. 3. Hyponatremia. 4. Type 2 diabetes. Plan . Updated 06/04 Patient desaturated doing a 6-minute walk, could not complete the exam, saturation dropping to the low 80s, required 12 L to improve. Discussed with Dr. Morris Continue current support updated 1024 6-minute walk Discussed with Dr. Subramanian Possible discharge today Follow-up with me in July updated 06/02 If continues to do well may be discharged Friday Continue current support KIP THOMPSON MD Jun 04, 2021 08:39
[2021-06-04] MEDS: REMDESIVIR 100mg in NORMAL SALINE 250ML X 4 DAYS IV SCH (08:45)
[2021-06-04] MEDS: INSULIN LISPRO 300 UNITS/3 ML VIAL. SQ SCH ×3 (09:11→17:52)
[2021-06-04] MEDS: HEPARIN for SUB-Q USE 5,000 UNIT/ML VIAL. SQ SCH ×2 (09:12→23:23)
[2021-06-04 11:00] VITALS: BP 140/67
--- NOTE | 2021-06-04 12:15 | PDOC ---
[facility] PROGRESS NOTE Date of Service DOS: DATE: 06/04/21 TIME: 12:05 Chief Complaint Chief Complaint COVID-19 pneumonia, noninsulin-dependent type 2 diabetes -Present outside hospital with 9-day history of URI symptoms, close contact with Covid positive people -Initially treated outpatient with azithromycin but returned emergency room yesterday due to failed treatment -Noted for positive COVID-19 sent here. -Started remdesivir and dexamethasone overnight. We will hold off on antibiotics given he just completed a recent course. -Consult to pulmonary team -We will provide sliding scale and long-acting for patient's diabetes while inpatient. If He is insistent on his oral meds he can continue them and stop insulin while admitted if he desires. -DVT prophylaxis -Diet as tolerated -Plan of care discussed with bedside RN. History of Present Illness History of Present Illness Patient is a 60-year-old white male presented to [facility] yesterday due to concern for Covid pneumonia. Patient reports he started developing symptoms about 10 days ago. He had been in close exposure to his [id number]-[id number] who was found to be Covid positive today as recently. He went got tested at that time was found to be positive. Initially just quarantine at home and provided supportive care himself. Actually to outside emergency room 5 days ago because his shortness of breath was persisting and he was discharged that day with azithromycin. He finished these antibiotics on May 30. Patient reported that yesterday he continued feeling very weak and short of breath checked his pulse ox and it was in the 70s prompting him to present for evaluation outside hospital. Imaging performed there showed opacities consistent with COVID-19 infection. He was then recommended for transfer here for further treatment. I evaluated the patient this morning he was resting in bed on 10 L nasal cannula. Reported his shortness of breath was improving but notably present still. Reported his oxygen decreases when he sleeps. Does not wear CPAP or BiP AP at home. Started on remdesivir and dexamethasone overnight. Just completed antibiotic course will hold off for now. Pulmonary consult 06/02: Patient evaluated examined at bedside this morning. Breathing still about the same but able to wean to 9 L nasal cannula. Says he feels about the same overall. Continuing remdesivir dexamethasone. Pulmonary following. 06/03: 6 minute walk required 6 L/min O2 at rest and 10 to 12 L on exertion with significant desaturations. Discharge delayed due to this. Afebrile overnight. His sense of smell has returned, still with dry unproductive cough. Now on 8 L/min nasal cannula with O2 saturations 91 to 94%. Will await to do repeat 6-minute walk until 24 to 48 hours Vitals/I&O Vitals/I&O: Vital Signs Date Time Temp Pulse Resp B/P (MAP) Pulse Ox O2 Delivery O2 Flow Rate FiO2 06/04/21 11:00 99.4 86 20 140/67 (91) 97 Nasal Cannula 7.0 99.4 I & O 06/03/21 06/03/21 06/04/21 15:00 23:00 07:00 Intake Total 2000 ml 240 ml Output Total 950 ml 2100 ml 500 ml Balance -950 ml -100 ml -260 ml Physical Exam General: Alert, Oriented X3, Cooperative Heart: Regular rate, Normal S1, Normal S2 Lungs: Clear, Other (Course) Abdomen: Normal bowel sounds, Soft, No tenderness Extremities: No edema, Normal pulses Skin: No significant lesion Labs Labs: Laboratory Tests Test 06/03/21 17:06 06/03/21 20:04 06/04/21 08:00 06/04/21 11:11 Glucose (Fingerstick) 340 mg/dL (70-99) 285 mg/dL (70-99) 169 mg/dL (70-99) 203 mg/dL (70-99) Comment Review of Relevant I have reviewed the following items silvia (where applicable) has been applied. Justifications for Admission Other Justification COVID-19 positive test (U07.1, COVID-19) with Acute Pneumonia (J12.89, Other viral pneumonia) (If respiratory failure or sepsis present, add as separate assessment) ANDRZEJ LU MD Jun 04, 2021 12:15
[2021-06-04] MEDS: guaiFENesin/CODEINE 100mg/10mg 5 ML LIQUID PO PRN (13:00)
[2021-06-04 15:00] VITALS: BP 149/78
[2021-06-04 19:54] VITALS: BP 138/76
[2021-06-04] MEDS: INSULIN GLARGINE SYRINGE. SQ SCH (23:22)
[2021-06-04 23:38] VITALS: BP 135/74
[2021-06-05 03:57] VITALS: BP 139/71
[2021-06-05] MEDS: LEVOTHYROXINE 100 MCG TABLET PO SCH (05:52)
[2021-06-05] MEDS: guaiFENesin/CODEINE 100mg/10mg 5 ML LIQUID PO PRN ×3 (06:09→16:08)
[2021-06-05 07:00] VITALS: BP 124/69
--- NOTE | 2021-06-05 07:14 | PDOC ---
[employer] PROGRESS NOTE Date of Service DOS: DATE: 06/05/21 TIME: 07:14 Chief Complaint Chief Complaint COVID-19 pneumonia, noninsulin-dependent type 2 diabetes Hyponatremia - nutritional Severe protein calorie malnutrition - likely due to covid 19 -Present outside hospital with 9-day history of URI symptoms, close contact with Covid positive people -Initially treated outpatient with azithromycin but returned emergency room y esterday due to failed treatment -Noted for positive COVID-19 sent here. -Started remdesivir and dexamethasone -Consulted pulmonary team -We will provide sliding scale and long-acting for patient's diabetes while inpatient. If He is insistent on his oral meds he can continue them and stop insulin while admitted if he desires. -DVT prophylaxis -Diet as tolerated -Plan of care discussed with bedside RN. History of Present Illness History of Present Illness Patient is a 60-year-old white male presented to [facility] yesterday due to concern for Covid pneumonia. Patient reports he started developing symptoms about 10 days ago. He had been in close exposure to his [id number] who was found to be Covid positive today as recently. He went got tested at that time was found to be positive. Initially just quarantine at home and provided supportive care himself. Actually to outside emergency room 5 days ago because his shortness of breath was persisting and he was discharged that day with azithromycin. He finished these antibiotics on May 30. Patient reported that yesterday he continued feeling very weak and short of breath checked his pulse ox and it was in the 70s prompting him to present for evaluation outside hospital. Imaging performed there showed opacities consistent with COVID-19 infection. He was then recommended for transfer here for further treatment. I evaluated the patient this morning he was resting in bed on 10 L nasal cannula. Reported his shortness of breath was improving but notably present still. Reported his oxygen decreases when he sleeps. Does not wear CPAP or B iPAP at home. Started on remdesivir and dexamethasone overnight. Just completed antibiotic course will hold off for now. Pulmonary consult 06/02: Patient evaluated examined at bedside this morning. Breathing still about the same but able to wean to 9 L nasal cannula. Says he feels about the same overall. Continuing remdesivir dexamethasone. Pulmonary following. 06/03: 6 minute walk required 6 L/min O2 at rest and 10 to 12 L on exertion with significant desaturations. Discharge delayed due to this. 06/04: Afebrile overnight. His sense of smell has returned, still with dry unproductive cough. Now on 8 L/min nasal cannula with O2 saturations 91 to 94%. Will await to do repeat 6-minute walk until 24 to 48 hours He was able to get up to go to the bathroom on his own turn to 4 L/min for this with O2 saturations 92% no he did get back into bed quickly he felt much less winded than he did when he did the similar 48 hours ago. Glucose better controlled. NA still 133. LFTs normalized. He is anxious to go home and amenable to a repeat 6-minute walk test today for discharge planning Vitals/I&O Vitals/I&O: Vital Signs Date Time Temp Pulse Resp B/P (MAP) Pulse Ox O2 Delivery O2 Flow Rate FiO2 06/05/21 03:57 98.6 79 18 139/71 (93) 93 Nasal Cannula 7.0 98.6 I & O 06/04/21 06/04/21 06/05/21 15:00 23:00 07:00 Intake Total 480 ml 240 ml 610 ml Output Total 700 ml 1450 ml Balance -220 ml -1210 ml 610 ml Physical Exam General: Alert, Oriented X3, Cooperative Heart: Regular rate, Normal S1, Normal S2 Lungs: Clear, Other (Course) Abdomen: Normal bowel sounds, Soft, No tenderness Extremities: No edema, Normal pulses Skin: No significant lesion Labs Labs: Laboratory Tests Test 06/04/21 08:00 06/04/21 11:11 06/04/21 16:28 06/04/21 20:23 Glucose (Fingerstick) 169 mg/dL (70-99) 203 mg/dL (70-99) 341 mg/dL (70-99) 281 mg/dL (70-99) Comment Review of Relevant I have reviewed the following items silvia (where applicable) has been applied. Justifications for Admission Other Justification COVID-19 positive test (U07.1, COVID-19) with Acute Pneumonia (J12.89, Other viral pneumonia) (If respiratory failure or sepsis present, add as separate assessment) ANDRZEJ LU MD Jun 05, 2021 07:14
[2021-06-05] MEDS: DEXAMETHASONE SOD PHOS 4 MG/ML VIAL IVP SCH (08:31)
[2021-06-05] MEDS: ASCORBIC ACID 1,000 MG TABLET PO SCH ×2 (08:31→15:57)
[2021-06-05] MEDS: THIAMINE 100 MG TABLET. PO SCH (08:32)
[2021-06-05] MEDS: BENZONATATE 100 MG CAPSULE. PO SCH ×2 (08:32→15:57)
[2021-06-05] MEDS: ZINC SULFATE 220 MG CAPSULE. PO SCH (08:32)
[2021-06-05] MEDS: INSULIN LISPRO 300 UNITS/3 ML VIAL. SQ SCH ×2 (08:37→12:28)
[2021-06-05] MEDS: HEPARIN for SUB-Q USE 5,000 UNIT/ML VIAL. SQ SCH (08:38)
--- NOTE | 2021-06-05 08:38 | PDOC ---
PULMONARY PROGRESS NOTES DATE: 06/05/21 TIME: 08:38 Subjective She feels better, not more short of air, if possible wishes to be discharged Vitals Vital Signs Date Time Temp Pulse Resp B/P (MAP) Pulse Ox O2 Delivery O2 Flow Rate FiO2 06/05/21 07:00 98.3 88 20 124/69 (87) 98 Nasal Cannula 7.0 98.3 ROS: No Nausea, No Chest Pain, No Abdominal Pain, No Increase Cough General: Alert Lungs: Clear, Other (Course) Cardiovascular: S1, S2 Abdomen: Soft Neuro Exam: Alert Extremities: No Edema Skin: Warm Labs Laboratory Tests Test 06/03/21 11:47 06/03/21 17:06 06/03/21 20:04 06/04/21 08:00 Glucose (Fingerstick) 303 mg/dL (70-99) 340 mg/dL (70-99) 285 mg/dL (70-99) 169 mg/dL (70-99) Test 06/04/21 11:11 06/04/21 16:28 06/04/21 20:23 06/05/21 07:45 Glucose (Fingerstick) 203 mg/dL (70-99) 341 mg/dL (70-99) 281 mg/dL (70-99) 181 mg/dL (70-99) Laboratory Tests Test 06/04/21 11:11 06/04/21 16:28 06/04/21 20:23 06/05/21 07:45 Glucose (Fingerstick) 203 mg/dL (70-99) 341 mg/dL (70-99) 281 mg/dL (70-99) 181 mg/dL (70-99) Medications Active Scripts Medications Dose Route/Sig Max Daily Dose Days Date Category Metformin Hcl 1,000 Mg Tablet 1,000 Mg PO BIDWMEALS 05/31/21 Reported Rybelsus (Semaglutide) 14 Mg Tablet 14 Mg PO DAILY 05/31/21 Reported Pioglitazone Hcl 30 Mg Tablet 30 Mg PO DAILY 05/31/21 Reported Levothyroxine Sodium 200 Mcg Tablet 200 Mcg PO DAILY 05/31/21 Reported Impression . IMPRESSION: 1. Acute hypoxemic respiratory failure secondary to COVID-19 viral pneumonia. 2. COVID-19 viral pneumonia. 3. Hyponatremia. 4. Type 2 diabetes. Plan . Updated 06/05 Patient improved, discharged home on 3 L at rest 4 L with exertion Follow-up with me in July updated 06/04 Patient desaturated doing a 6-minute walk, could not complete the exam, saturation dropping to the low 80s, required 12 L to improve. Discussed with Dr. Morris Continue current support updated 1024 6-minute walk Discussed with Dr. Subramanian Possible discharge today Follow-up with me in July updated 06/02 If continues to do well may be discharged Friday Continue current support KIP THOMPSON MD Jun 05, 2021 08:38
[2021-06-05 09:13] LABS: ALBUMIN 2.5 g/dL (3.4-5.0); ALBUMIN/GLOBULIN RATIO 0.5 (1.0-1.7); CALCIUM 8.3 mg/dL (8.5-10.1); CREATININE 0.7 mg/dL (0.7-1.3); GFR 115.4; POTASSIUM 3.8 mmol/L (3.5-5.1); TOTAL BILIRUBIN 0.8 mg/dL (0.2-1.0); TOTAL PROTEIN 7.2 g/dL (6.4-8.2)
[2021-06-05] MEDS: REMDESIVIR 100mg in NORMAL SALINE 250ML X 4 DAYS IV SCH (09:22)
[2021-06-05 11:00] VITALS: BP_SYST 110; BP_SYST 123; BP_DIAS 73; BP_DIAS 76
--- NOTE | 2021-06-05 14:54 | PDOC3 ---
Discharge Summary Visit Information Date of Admission: May 31, 2021 Date of Discharge: Jun 05, 2021 Admitting Diagnosis: COVID 19 Final Diagnosis COVID 19 Brief Hospital Course Allergies Allergies Coded Allergies Type Severity Reaction Last Updated Verified Penicillins Allergy Intermediate 05/31/21 Yes Vital Signs Vital Signs Date Time Temp Pulse Resp B/P (MAP) Pulse Ox O2 Delivery O2 Flow Rate FiO2 06/05/21 11:00 98.8 80 20 123/76 (92) 97 Nasal Cannula 98.8 Lab Results Laboratory Tests Test 06/03/21 17:06 06/03/21 20:04 06/04/21 08:00 06/04/21 11:11 Glucose (Fingerstick) 340 mg/dL (70-99) 285 mg/dL (70-99) 169 mg/dL (70-99) 203 mg/dL (70-99) Test 06/04/21 16:28 06/04/21 20:23 06/05/21 07:45 06/05/21 08:20 Glucose (Fingerstick) 341 mg/dL (70-99) 281 mg/dL (70-99) 181 mg/dL (70-99) Sodium Level 133 mmol/L (136-145) Potassium Level 3.8 mmol/L (3.5-5.1) Chloride Level 97 mmol/L (98-107) Carbon Dioxide Level 28 mmol/L (21-32) Anion Gap 8 (6-14) Blood Urea Nitrogen 11 mg/dL (8-26) Creatinine 0.7 mg/dL (0.7-1.3) Estimated GFR (Cockcroft-Gault) 115.4 BUN/Creatinine Ratio 16 (6-20) Glucose Level 180 mg/dL (70-99) Calcium Level 8.3 mg/dL (8.5-10.1) Total Bilirubin 0.8 mg/dL (0.2-1.0) Aspartate Amino Transf (AST/SGOT) 28 U/L (15-37) Alanine Aminotransferase (ALT/SGPT) 37 U/L (16-63) Alkaline Phosphatase 47 U/L (46-116) Total Protein 7.2 g/dL (6.4-8.2) Albumin 2.5 g/dL (3.4-5.0) Albumin/Globulin Ratio 0.5 (1.0-1.7) Test 06/05/21 11:51 Glucose (Fingerstick) 262 mg/dL (70-99) Laboratory Tests Test 06/04/21 16:28 06/04/21 20:23 06/05/21 07:45 06/05/21 08:20 Glucose (Fingerstick) 341 mg/dL (70-99) 281 mg/dL (70-99) 181 mg/dL (70-99) Sodium Level 133 mmol/L (136-145) Potassium Level 3.8 mmol/L (3.5-5.1) Chloride Level 97 mmol/L (98-107) Carbon Dioxide Level 28 mmol/L (21-32) Anion Gap 8 (6-14) Blood Urea Nitrogen 11 mg/dL (8-26) Creatinine 0.7 mg/dL (0.7-1.3) Estimated GFR (Cockcroft-Gault) 115.4 BUN/Creatinine Ratio 16 (6-20) Glucose Level 180 mg/dL (70-99) Calcium Level 8.3 mg/dL (8.5-10.1) Total Bilirubin 0.8 mg/dL (0.2-1.0) Aspartate Amino Transf (AST/SGOT) 28 U/L (15-37) Alanine Aminotransferase (ALT/SGPT) 37 U/L (16-63) Alkaline Phosphatase 47 U/L (46-116) Total Protein 7.2 g/dL (6.4-8.2) Albumin 2.5 g/dL (3.4-5.0) Albumin/Globulin Ratio 0.5 (1.0-1.7) Test 06/05/21 11:51 Glucose (Fingerstick) 262 mg/dL (70-99) Brief Hospital Course Patient is a 60-year-old white male presented to [facility] yesterday due to concern for Covid pneumonia. Patient reports he started developing sym ptoms about 10 days ago. He had been in close exposure to his [id number] who was found to be Covid positive today as recently. He went got tested at that time was found to be positive. Initially just quarantine at home and provided supportive care himself. Actually to outside emergency room 5 days ago because his shortness of breath was persisting and he was discharged that day with azithromycin. He finished these antibiotics on May 30. Patient reported that yesterday he continued feeling very weak and short of breath checked his pulse ox and it was in the 70s prompting him to present for evaluation outside hospital. Imaging performed there showed opacities consistent with COVID-19 infection. He was then recommended for transfer here for further treatment. I evaluated the patient this morning he was resting in bed on 10 L nasal cannula. Reported his shortness of breath was improving but notably present still. Reported his oxygen decreases when he sleeps. Does not wear CPAP or BiPAP at home. Started on remdesivir and dexamethasone overnight. Just completed antibiotic course will hold off for now. Pulmonary consult 06/02: Patient evaluated examined at bedside this morning. Breathing still about the same but able to wean to 9 L nasal cannula. Says he feels about the same overall. Continuing remdesivir dexamethasone. Pulmonary following. 06/03: 6 minute walk required 6 L/min O2 at rest and 10 to 12 L on exertion with significant desaturations. Discharge delayed due to this. 06/04: Afebrile overnight. His sense of smell has returned, still with dry unproductive cough. Now on 8 L/min nasal cannula with O2 saturations 91 to 94%. Will await to do repeat 6-minute walk until 24 to 48 hours He was able to get up to go to the bathroom on his own turn to 4 L/min for this with O2 saturations 92% no he did get back into bed quickly he felt much less winded than he did when he did the similar 48 hours ago. Glucose better controlled. NA still 133. LFTs normalized. He is anxious to go home and amenable to a repeat 6-minute walk test today for discharge planning 3l/min at rest and 4l/min on exertion. ASA for thromboppx and Decadron 7 additional days Problem list: COVID-19 pneumonia, noninsulin-dependent type 2 diabetes Hyponatremia - nutritional Severe protein calorie malnutrition - likely due to covid 19 Consults:Pulmonology -Present outside hospital with 9-day history of URI symptoms, close contact with Covid positive people -Initially treated outpatient with azithromycin but returned emergency room yesterday due to failed treatment -Noted for positive COVID-19 sent here. -Started remdesivir and dexamethasone -Consulted pulmonary team Greater than 30 minutes spent on d/c Discharge Information Condition at Discharge: Improved Follow Up: Weeks (1) Disposition/Orders: D/C to Home Scheduled Dexamethasone (Decadron) 6 Mg Tablet, 6 MG PO DAILY for covid for 7 Days, #7 Prescribed by: ANDRZEJ SALAMANCA MD on 06/03/214 Levothyroxine Sodium (Levothyroxine Sodium) 200 Mcg Tablet, 200 MCG PO DAILY for hypothyroid, (Reported) Entered as Reported by: FAUSTO TSANG on 05/31/211949 Last Action: Converted on 06/01/21927 by ANDRZEJ SALAMANCA MD Metformin Hcl (Metformin Hcl) 1,000 Mg Tablet, 1,000 MG PO BIDWMEALS for DM, (Reported) Entered as Reported by: FAUSTO TSANG on 05/31/211949 Last Action: HELD on 06/01/21927 by ANDRZEJ SALAMANCA MD Pioglitazone Hcl (Pioglitazone Hcl) 30 Mg Tablet, 30 MG PO DAILY for DM, (Reported) Entered as Reported by: FAUSTO TSANG on 05/31/211949 Last Action: HELD on 06/01/21927 by ANDRZEJ SALAMANCA MD Semaglutide (Rybelsus) 14 Mg Tablet, 14 MG PO DAILY for DM, (Reported) Entered as Reported by: FAUSTO TSANG on 05/31/211949 Last Action: HELD on 06/01/21927 by ANDRZEJ SALAMANCA MD Scheduled PRN Benzonatate (Benzonatate) 100 Mg Capsule, 100 MG PO PRN TID PRN for COUGH for 14 Days, #30 Prescribed by: ANDRZEJ SALAMANCA MD on 06/03/211213 Justicifation of Admission Dx: Justifications for Admission: Justification of Admission Dx: Yes (COVID, hypoxic respiratory failure) ANDRZEJ LU MD Jun 05, 2021 14:54
[2021-06-05 15:00] VITALS: BP 139/72
--- NOTE | 2021-06-05 18:10 | NUR ---
pt was dischagred home with self care, he needed 4L NC upon exertion and 3L NC at rest. oxygen was arranged for pt and he was picked up by his at the main entrance at 1700. Sukhdeep Kumar RN
== END 2021-06-05 15:00 | disposition home or self-care (01) | DRG 177 ==
LOC: 5 NORTH 19:15
PROVIDERS: ADMIT Internal Medicine; ATTEND Internal Medicine
PROC: 5A0935A Assistance with Respiratory Ventilation, Less than 24 Consecutive Hours, High Flow/Velocity Cannula (ICD-10-PCS; 2021-05-31)
PROC: XW033E5 Introduction of Remdesivir Anti-infective into Peripheral Vein, Percutaneous Approach, New Technology Group 5 (ICD-10-PCS; principal; 2021-06-02)
DX: U07.1 COVID-19 (principal); J12.82 Pneumonia due to coronavirus disease 2019; E43 Unspecified severe protein-calorie malnutrition; J96.01 Acute respiratory failure with hypoxia; E87.1 Hypo-osmolality and hyponatremia; E11.9 Type 2 diabetes mellitus without complications; Z83.3 Family history of diabetes mellitus; Z68.36 Body mass index [BMI] 36.0-36.9, adult; Z79.899 Other long term (current) drug therapy; Z88.0 Allergy status to penicillin
CPT/HCPCS: 36415; 80048; 80053; 82962; 83735; 84100; 85025; 85379; 86140; 94618; J1100; J1644; J1815; J7050; G0378; J7030